=== PATIENT | female | born 1945 | race Caucasian/White ===

== ENCOUNTER 2016-08-15 05:52 | Emergency (ER) | payer MEDICARE, SELFPAY ==
[2016-08-15 07:03] LABS: BILIRUBIN NEGATIVE (NEGATIVE); BLOOD NEGATIVE Ery/uL (NEGATIVE); CLARITY CLEAR (CLEAR); COLOR STRAW (YELLOW); GLUCOSE (U) NORMAL (NORMAL); KETONE (U) NEGATIVE (NEGATIVE); LEUKOCYTES NEGATIVE Leu/uL (NEGATIVE); NITRITE NEGATIVE (NEGATIVE); PROTEIN NEGATIVE (NEGATIVE); UROBILINOGEN 0.2 mg/dL (0.2-1.0); pH 7.5 (5.0-9.0)
[2016-08-15 07:13] LABS: BASOPHIL 0.5 % (0-2); EOSINOPHIL 0.8 % (0-7); HCT 37.4 % (37.0-47.0); HGB 13.3 g/dl (12.5-16.0); LYMPHOCYTE 15.3 % (15-48); MCHC 35.6 g/dL (32.0-36.0); MCV 78.7 fL (78.0-100.0); MONOCYTE 18.1 % (0-12); MPV 8.7 fL (6.0-9.5); NEUTROPHIL 65.3 % (41-80); PLT 260 K/uL (150-400); RBC 4.75 M/uL (4.20-5.40); RDW 12.8 % (11.5-14.0); WBC 3.9 K/uL (4.0-10.5)
[2016-08-15 07:36] LABS: CREATININE 0.8 mg/dL (0.5-1.0); POTASSIUM 3.5 mmol/L (3.5-5.1)
== END 2016-08-15 07:39 | disposition home or self-care (01) ==
LOC: FER 05:52
PROVIDERS: Emergency Medicine
DX: R11.2 Nausea with vomiting, unspecified (principal); R19.7 Diarrhea, unspecified; Z88.5 Allergy status to narcotic agent; Z88.6 Allergy status to analgesic agent; Z87.19 Personal history of other diseases of the digestive system; Z90.49 Acquired absence of other specified parts of digestive tract
CPT/HCPCS: 36415; 74022; 80048; 81003; 83690; 85025; 99284

== ENCOUNTER 2016-08-24 10:52 | Emergency (ER) | payer MEDICARE, SELFPAY | END 2016-08-24 14:00 | disposition home or self-care (01) | LOC: FER 10:52 | DX: I10 Essential (primary) hypertension (principal); R11.2 Nausea with vomiting, unspecified; K21.9 Gastro-esophageal reflux disease without esophagitis; Z88.6 Allergy status to analgesic agent | CPT/HCPCS: 99283 ==

== ENCOUNTER 2016-11-15 20:25 | Emergency (ER) | payer MEDICARE ==
[2016-11-15 21:47] LABS: BILIRUBIN NEGATIVE (NEGATIVE); BLOOD NEGATIVE Ery/uL (NEGATIVE); GLUCOSE (U) NORMAL (NORMAL); KETONE (U) NEGATIVE (NEGATIVE); LEUKOCYTES 2+ Leu/uL (NEGATIVE); NITRITE NEGATIVE (NEGATIVE); PROTEIN NEGATIVE (NEGATIVE); SPECIFIC GRAVITY <=1.005 (1.001-1.030); UROBILINOGEN 0.2 mg/dL (0.2-1.0); pH 6.5 (5.0-9.0)
[2016-11-15 21:48] LABS: CLARITY SLIGHTLY HAZY (CLEAR); COLOR STRAW (YELLOW)
[2016-11-15 21:51] LABS: BACTERIA 1+; URINARY RBC RARE
[2016-11-15 21:59] LABS: BASOPHIL 0.3 % (0-2); EOSINOPHIL 1.4 % (0-7); HCT 34.3 % (37.0-47.0); HGB 11.8 g/dl (12.5-16.0); LYMPHOCYTE 26.6 % (15-48); MCH 28.3 pg (25.0-31.0); MCHC 34.4 g/dL (32.0-36.0); MCV 82.3 fL (78.0-100.0); MONOCYTE 9.4 % (0-12); MPV 9.2 fL (6.0-9.5); NEUTROPHIL 62.3 % (41-80); PLT 244 K/uL (150-400); RBC 4.17 M/uL (4.20-5.40); RDW 13.3 % (11.5-14.0); WBC 5.8 K/uL (4.0-10.5)
[2016-11-15 22:16] LABS: BILIRUBIN - TOTAL 0.3 mg/dL (0.1-1.0); CREATININE 1.6 mg/dL (0.5-1.0); POTASSIUM 3.5 mmol/L (3.5-5.1)
== END 2016-11-15 22:51 | disposition home or self-care (01) ==
LOC: FER 20:25
PROVIDERS: Emergency Medicine
DX: N39.0 Urinary tract infection, site not specified (principal)
CPT/HCPCS: 36415; 80053; 81001; 85025; 86403; 87076; 87077; 87088; 99283

== ENCOUNTER → 2016-11-16 | Day surgery (SDC) | payer MEDICARE ==
[~2016-11-16] VITALS: Ht 157.5 cm; Wt 56.9 kg
== END | disposition home or self-care (01) ==
LOC: FAS 09:54
DX: K83.1 Obstruction of bile duct (principal); K29.60 Other gastritis without bleeding; K21.9 Gastro-esophageal reflux disease without esophagitis; I47.1 Supraventricular tachycardia; I10 Essential (primary) hypertension; R00.1 Bradycardia, unspecified; F41.9 Anxiety disorder, unspecified; R32 Unspecified urinary incontinence; M19.90 Unspecified osteoarthritis, unspecified site; Z90.710 Acquired absence of both cervix and uterus; Z90.49 Acquired absence of other specified parts of digestive tract; Z88.3 Allergy status to other anti-infective agents
CPT/HCPCS: 74330; J2704; Q9962